=== PATIENT | female | born 1980 | race Caucasian/White ===

== ENCOUNTER 2018-07-18 15:30 | Emergency (ER) | payer OTHER ==
[2018-07-18 15:38] VITALS: BP 106/63; PULSE 83; RESP 16; TEMP 99; O2SAT 99
--- NOTE | 2018-07-18 16:56 | ED PDOC ---
Lower Extremity Pain/Injury Time Seen by Provider: 07/18/18 15:40 Chief Complaint (Nursing): Lower Extremity Problem/Injury Chief Complaint (Provider): Lower Extremity Problem/Injury History Per: Patient History/Exam Limitations: no limitations Onset/Duration Of Symptoms: Mins (prior to arrival) Current Symptoms Are (Timing): Still Present Additional Complaint(s): 37 year old female presents to the ED for evaluation of right foot and ankle pain. Patient states that prior to arrival, she tripped going over a curb, twisting her right ankle and foot. At this time, she reports pain to the area, but denies numbness, tingling, and other injury. PMD: Angella Soni Past Medical History Reviewed: Historical Data, Nursing Documentation, Vital Signs Vital Signs: Last Vital Signs Temp 99.0 F 07/18/18 15:35 Pulse 83 07/18/18 15:35 Resp 16 07/18/18 15:35 BP 106/63 07/18/18 15:35 Pulse Ox 99 07/18/18 15:35 - Medical History PMH: No Chronic Diseases - Surgical History Surgical History: Cholecystectomy - Family History Family History: States: Unknown Family Hx - Social History Current smoker - smoking cessation education provided: No Alcohol: None Drugs: Denies - Home Medications Home Medications: Ambulatory Orders Medication Instructions Recorded Ondansetron [Zofran] 4 mg PO Q8H #10 tab 04/02/15 - Allergies Allergies/Adverse Reactions: Allergies Allergy/AdvReac Type Severity Reaction Status Date / Time No Known Allergies Allergy Verified 04/02/15 18:37 Review of Systems ROS Statement: Except As Marked, All Systems Reviewed And Found Negative Musculoskeletal: Positive for: Foot Pain (right foot and ankle) Neurological: Negative for: Numbness (or tingling) Physical Exam - Reviewed Nursing Documentation Reviewed: Yes Vital Signs Reviewed: Yes - Physical Exam Appears: Positive for: In Acute Distress (mild painful) Skin: Positive for: Warm, Dry Pulses-Dorsalis Pedis (L): 2+ Pulses-Dorsalis Pedis (R): 2+ Extremity: Positive for: Tenderness (right LE just below lateral malleolus with ecchymosis; no tenderness to right knee or remainder of leg), Swelling (right LE just below lateral malleolus). Negative for: Deformity Neurologic/Psych: Positive for: Alert, Oriented (x3) - ECG O2 Sat by Pulse Oximetry: 99 (RA) Pulse Ox Interpretation: Normal Medical Decision Making Medical Decision Making: Time: 154 Initial Impression: right ankle / foot injury, rule out fx Initial Plan: --Motrin 600mg PO --Right ankle XR --Right foot XR Ankle immobilized in aircast splint and cast shoe by angiography technologist. Crutches and crutch walking instructions provided. Advised to f/u with Dr. Haile for further evaluation. Scribe Attestation: Documented by Deidra Russell, acting as a scribe for Rommel Sanz PA-C. Provider Scribe Attestation: All medical record entries made by the Scribe were at my direction and personally dictated by me. I have reviewed the chart and agree that the record accurately reflects my personal performance of the history, physical exam, medical decision making, and the department course for this patient. I have also personally directed, reviewed, and agree with the discharge instructions and disposition. Disposition - Clinical Impression Clinical Impression: Ankle injury - Patient ED Disposition Is Patient to be Admitted: No - Disposition Referrals: Ezio Haile MD [Staff Provider] - Disposition: Routine/Home Disposition Time: 16:30 Condition: STABLE Additional Instructions: FOLLOW UP WITH DR. HAILE FOR FURTHER EVALUATION FELTONJOSE RAUL ALCAZAR, thank you for letting us take care of you today. Your provider was Joanne Aguilera MD and you were treated for RT ANKLE INJURY. The emergency medical care you received today was directed at your acute symptoms. If you were prescribed any medication, please fill it and take as directed. It may take several days for your symptoms to resolve. Return to the Emergency Department if your symptoms worsen, do not improve, or if you have any other problems. Please contact your doctor or call one of the physicians/clinics you have been referred to that are listed on the Patient Visit Information form that is included in your discharge packet. Bring any paperwork you were given at discharge with you along with any medications you are taking to your follow up visit. Our treatment cannot replace ongoing medical care by a primary care provider outside of the emergency department. Thank you for allowing the [facility] team to be part of your care today. If you had an X-Ray or CT scan: A Radiologist will review the ED reading if any change in treatment is needed we will contact you. If you had a blood, urine, or wound culture: It will take several days for the results, if any change in treatment is needed we will contact you. If you had an STI test: It will take 48 hours for the results. Please call after 1 week if you have not heard back. Instructions: Ankle Sprain (DC), How to Use Crutches Forms: [employer] (S[place] Leonean), [facility] ED School/Work Excuse Print Language: LAO
--- NOTE | 2018-07-19 08:26 | RAD ---
Date of service: 07/18/2018 PROCEDURE: Right Ankle Radiographs. HISTORY: Trauma COMPARISON: None FINDINGS: BONES: Three views of the right ankle were performed. No ankle mortise widening is seen. No fracture is identified. No lytic process is seen. Talar dome is normal in outline. Subtalar joint is unremarkable. Mild soft tissue swelling is seen along the lateral aspect of the proximal foot. Base of the 5th metatarsal is intact. Probable bone island is seen in the distal right fibula and 3rd metatarsal. JOINTS: See above. SOFT TISSUES: Mild soft tissue swelling. OTHER FINDINGS: None. IMPRESSION: No appreciable fracture or ankle mortise widening.
--- NOTE | 2018-07-19 08:26 | RAD ---
Date of service: 07/18/2018 PROCEDURE: Right Foot Radiographs. HISTORY: COMPARISON: None. FINDINGS: BONES: Normal. No fracture. There is a probable small bone island seen in the distal right 3rd metatarsal. Subtalar joint is unremarkable. No ankle joint effusion is seen. Talar dome is normal in outline. No periosteal reaction is seen. Minor degenerative changes are seen in the right 1st metatarsal phalangeal joint. JOINTS: See above. There is no abnormal widening of the proximal 1st and 2nd tarsal metatarsal joint. SOFT TISSUES: Normal. OTHER FINDINGS: None. IMPRESSION: No fracture.
== END 2018-07-18 17:18 | disposition home or self-care (01) ==
LOC: H.ER 15:30
DX: S99.911A Unspecified injury of right ankle, initial encounter (principal); W19.XXXA Unspecified fall, initial encounter; Y92.89 Other specified places as the place of occurrence of the external cause

== ENCOUNTER 2018-12-11 20:11 | Emergency (ER) | payer OTHER ==
[2018-12-11 20:31] VITALS: O2SAT 99
--- NOTE | 2018-12-11 22:25 | ED PDOC ---
HPI: Female Pain Time Seen by Provider: 12/11/18 20:43 Chief Complaint (Nursing): Female Genitourinary Associated Symptoms: denies: Fever, Chills, Nausea, Vomiting, Diarrhea Additional Complaint(s): 38 y/o Female with no significant PMH who presents with sudden onset pelvic pain x 2 hrs. Pt states that she was performing her ADLs when she suddenly had lower abdominal/pelvic pain. She states that it is episodic and is severe enough to make her feel lightheaded when it is at it's most painful. She has not taken anything for the pain. Denies dysuria, vaginal discharge or bleeding, vomiting, diarrhea, fever, night sweats. Last BM was just prior to coming to ED but did not help with the discomfort. States that it feels like uterine contractions. Abnormal Vaginal Bleeding: No Past Medical History Reviewed: Historical Data, Nursing Documentation, Vital Signs Vital Signs: Last Vital Signs Temp 98.3 F 12/11/18 20:28 Pulse 74 12/11/18 20:28 Resp 18 12/11/18 20:28 BP 103/57 L 12/11/18 20:28 Pulse Ox 99 12/11/18 20:28 - Medical History PMH: No Chronic Diseases - Surgical History Surgical History: Cholecystectomy - Family History Family History: States: Unknown Family Hx - Home Medications Home Medications: Ambulatory Orders Medication Instructions Recorded Ondansetron [Zofran] 4 mg PO Q8H #10 tab 04/02/15 - Allergies Allergies/Adverse Reactions: Allergies Allergy/AdvReac Type Severity Reaction Status Date / Time No Known Allergies Allergy Verified 04/02/15 18:37 Review of Systems Constitutional: Negative for: Fever, Chills Respiratory: Negative for: Cough, Shortness of Breath Gastrointestinal: Positive for: Abdominal Pain. Negative for: Nausea, Vomiting, Diarrhea Genitourinary Female: Positive for: Pelvic Pain. Negative for: Dysuria, Vaginal Discharge, Vaginal Bleeding Physical Exam - Reviewed Nursing Documentation Reviewed: Yes Vital Signs Reviewed: Yes - Physical Exam Appears: Positive for: Uncomfortable Skin: Positive for: Normal Color Neck: Positive for: Normal Cardiovascular/Chest: Positive for: Regular Rate, Rhythm Respiratory: Positive for: Normal Breath Sounds Gastrointestinal/Abdominal: Positive for: Tenderness (suprapubic and LLQ tenderness on palpation. ). Negative for: Distended, Guarding, Rebound Pelvic Exam: Positive for: External Exam Normal (performed in the presence of RN Araceli), Cervicitis, Discharge (thin, white, small amount in vaginal canal), Tender Adnexa (left). Negative for: Speculum Exam Normal (clear/white thin discharge noted in vaginal canal, mild erythema at cervical os. ), No Cerv. Motion Tender (mild cervical motion tenderness), Active Bleeding, Blood Lymphatic: Positive for: Normal Exam Neurologic/Psych: Positive for: Alert, Oriented - Laboratory Results Result Diagrams: 12/11/18 23:40 12/11/18 23:40 - ECG O2 Sat by Pulse Oximetry: 99 Medical Decision Making Medical Decision Making: CBC, CMP Transvaginal U/S Genital culture GC/Chlamydia Urine preg U/A 22:36 US Findings Uterus Measures 8.2 x 4.1 x 5.6 cm. Normal in size and appearance. No fibroid or other mass lesion seen. Endometrium Measures 0.9 mm in diameter. Unremarkable. Right ovary Measures 2.8 x 1.5 x 2.3 cm. No solid mass. Normal flow. Follicles are seen. Left ovary Measures 4.7 x 2.1 x 3.6 cm. No solid mass. Normal flow. Complex cystic structure measures 2.8 x 1.7 x 2.7 cm. Multiple follicles are seen. Free fluid Trace amount of free fluid noted. Other Findings Excessive bowel seen in the bilateral adnexal regions. Impression 1. Trace amount of free fluid noted. 2. Bilateral ovarian follicles. 3. Left ovarian complex cystic structure. 23:50: Results d/w patient and recommended need for CT scan for further evaluation of severe abdominal/pelvic pain. Patient refusing oral contrast as she needs to be home soon for her children but agrees to proceed with IV contrast. 00:55 Ct COMMENTS: The liver is of uniform attenuation without mass or defect. There is no intra or extrahepatic biliary ductal dilatation. The spleen is normal. The gallbladder is surgically absent. The pancreas is of normal contour and attenuation characteristics. There is no evidence of adrenal mass. Both kidneys demonstrate prompt and equal nephrograms. The kidneys are normal in size, shape and configuration. There is no evidence of renal or ureteral mass. No renal or ureteral calculi are identified. There is no hydroureter or hydronephrosis. No evidence for appendicitis. There is no bowel wall thickening. No evidence for small or large bowel obstruction. There is no evidence of abdominal ascites or lymphadenopathy. There is no evidence of intrinsic or extrinsic bladder mass. There is no pelvic lymphadenopathy. Mildly enlarged fibroid uterus. 3.9x4.1 cm left ovarian cyst with minimal adjacent free pelvic fluid. Moderate constipation. Images of the lung bases show no evidence of pleural or parenchymal mass. There are no pleural effusions. The bony structures are free of lytic or blastic lesions. IMPRESSION: Left ovarian cyst. Minimal adjacent free fluid. Mildly enlarged fibroid uterus. Disposition - Disposition Forms: [employer] (Nepali)
[2018-12-11] MEDS ORDERED: Iohexol 240 (50 ml) PO ONE (23:39)
[2018-12-11 23:51] LABS: BASO # 0.1 K/uL (0.0-0.2); BASO % 0.4 % (0.0-2.0); EOS # 0.1 K/uL (0.0-0.7); EOS % 0.5 % (0.0-4.0); HEMOGLOBIN 12.7 g/dL (12.0-16.0); LYMPH # 2.7 K/uL (1.0-4.3); LYMPH % 17.1 % (20.0-40.0); MEAN CELL VOLUME 86.2 fl (81.0-99.0); MEAN CORPUSCULAR HEMOGLOBIN 29.5 pg (27.0-31.0); MEAN CORPUSCULAR HGB CONC 34.3 g/dL (33.0-37.0); MEAN PLATELET VOLUME 10.2 fl (7.2-11.7); MONO # 0.7 K/uL (0.0-0.8); MONO % 4.8 % (0.0-10.0); NEUT # 12.1 K/uL (1.8-7.0); NEUT % 77.2 % (50.0-75.0); RBC 4.29 Mil/uL (3.80-5.20); RED CELL DISTRIBUTION WIDTH 12.4 % (11.5-14.5); WHITE BLOOD COUNT 15.6 K/uL (4.8-10.8)
[2018-12-11] MEDS ORDERED: Iohexol 240 (50 ml) ONE (23:52)
[2018-12-11 23:55] LABS: SQUAMOUS EPITHIAL 17 /hpf (0-5); URINE BILIRUBIN NEGATIVE (NEGATIVE); URINE BLOOD NEGATIVE (NEGATIVE); URINE CLARITY SLIGHTY-CLOUDY (Clear); URINE COLOR YELLOW (YELLOW); URINE GLUCOSE (UA) NEG (NEGATIVE); URINE LEUKOCYTE ESTERASE NEG Leu/uL (Negative); URINE PROTEIN 100 mg/dL (NEGATIVE); URINE UROBILINOGEN 0.2-1.0 mg/dL (0.2-1.0)
[2018-12-11 23:57] LABS: ALB/GLOB RATIO 1.3 (1.0-2.1); ALBUMIN 4.4 g/dL (3.5-5.0); ALT/SGPT 46 U/L (9-52); AST/SGOT 25 U/L (14-36); BLOOD UREA NITROGEN 19 mg/dl (7-17); CALCIUM 9.3 mg/dL (8.4-10.2); GFR NON-AFRICAN AMERICAN > 60
[2018-12-12] MEDS ORDERED: Sodium Chloride 0.9% 50 ML IV ONE (00:08)
[2018-12-12] MEDS ORDERED: Iohexol 300 100 ML IJ ONE (00:08)
[2018-12-12 02:48] VITALS: BP 112/65; PULSE 71; RESP 16; TEMP 97.8
--- NOTE | 2018-12-12 10:25 | US ---
Date of service: 12/11/2018 HISTORY: r/o ovarian torsion COMPARISON: None available. TECHNIQUE: Transabdominal and endovaginal ultrasound examination of the pelvis was performed. FINDINGS: UTERUS: Measures 8.2 x 4.1 x 5.6 cm. Normal in size and appearance. No fibroid or other mass lesion seen. ENDOMETRIUM: Measures 7 mm in diameter. Heterogeneous endometrium with possible small fluid. CERVIX: No cervical abnormality identified. RIGHT OVARY: Measures 2.8 x 1.5 x 2.3 cm. No solid mass. Normal flow. LEFT OVARY: Measures 4.7 x 2.1 x 3.6 cm. Complex cystic lesion noted at the left adnexa measures 2.8 x 1.7 x 2.7 centimeter may represent hemorrhagic cyst. Normal flow. FREE FLUID: Small amount of free fluid in the pelvis noted. OTHER FINDINGS: None. IMPRESSION: Complex cystic lesion noted at the left adnexa measures 2.9 x 1.8 x 2.8 centimeter. Findings may represent hemorrhagic cyst. Follow-up reassessment is suggested. Small amount of free fluid in the pelvis. Preliminary report contains concordant findings was submitted by [facility].
--- NOTE | 2018-12-12 11:25 | CT ---
Date of service: 12/12/2018 PROCEDURE: CT Abdomen and Pelvis with contrast HISTORY: lower abdominal pain, normal U/S COMPARISON: This is made to the previous ultrasound examination of the pelvis dated 12/11/2018 and 04/02/2015 TECHNIQUE: Contrast dose: 90 cc of Omnipaque 300 intravenously. Axial and reformatted coronal and sagittal CT images of the abdomen and pelvis were obtained after Radiation dose: Total exam DLP = IV contrast administration. MGy-cm. This CT exam was performed using one or more of the following dose reduction techniques: Automated exposure control, adjustment of the mA and/or kV according to patient size, and/or use of iterative reconstruction technique. FINDINGS: LOWER THORAX: Unremarkable. LIVER: There is a 1.3 x 1.6 centimeter enhancing nodule at the right liver lobe may represent hemangioma versus adenoma versus vascular anomaly. The possibility of malignant neoplasm is less likely. The liver is otherwise grossly unremarkable. GALLBLADDER AND BILE DUCTS: This post cholecystectomy. PANCREAS: Unremarkable. No gross lesion or ductal dilatation. SPLEEN: Unremarkable. ADRENALS: Unremarkable. No mass. KIDNEYS AND URETERS: Unremarkable. No hydronephrosis. No solid mass. VASCULATURE: Unremarkable. No aortic aneurysm. No aortic atherosclerotic calcification or mural plaque present. BOWEL: Unremarkable. No obstruction. No gross mural thickening. Mild constipation is noted. APPENDIX: Normal appendix. PERITONEUM: Unremarkable. No free fluid. No free air. LYMPH NODES: Unremarkable. No enlarged lymph nodes. BLADDER: Unremarkable. REPRODUCTIVE: There is 3.5 centimeters cystic lesion at the left adnexa. The uterus is heterogeneous likely contains fibroids. Trace amount of free fluid in the pelvis noted. BONES: No acute fracture. OTHER FINDINGS: None. IMPRESSION: 3.5 centimeters cystic lesion at the left adnexa. Leiomyomatosis uterus. Enhancing nodule at the right liver lobe measures 1.6 centimeter in the maximum diameter likely represent benign lesion such as adenoma versus hemangioma or vascular anomaly. The possibility of malignant neoplasm is less likely. Three months follow-up reassessment by ultrasound or CT may be obtained. Preliminary report contains concordant findings was submitted by [facility].
== END 2018-12-12 02:48 | disposition home or self-care (01) ==
LOC: H.ER 20:11
DX: D25.9 Leiomyoma of uterus, unspecified (principal); N83.202 Unspecified ovarian cyst, left side
CPT/HCPCS: 74177; 76830; 80053; 81003; 81025; 85025; 87070; 87086; 87491; 87591; 99283; Q9967